=== PATIENT | male | born 1955 | race Caucasian/White ===

== ENCOUNTER 2018-09-17 07:32 | Outpatient (CLI) | payer OTHER ==
[~2018-09-17 07:32] MED LIST: ASPI-496
== END 2018-09-17 23:59 | disposition home or self-care (01) ==
LOC: CVU 07:32
PROVIDERS: ATTEND Surgery
DX: I87.2 Venous insufficiency (chronic) (peripheral) (principal); L81.9 Disorder of pigmentation, unspecified; R60.0 Localized edema
CPT/HCPCS: 93970

== ENCOUNTER 2018-10-06 19:25 | Observation (INO) | payer OTHER ==
[~2018-10-06] VITALS: Ht 182.9 cm; Wt 100.0 kg
[~2018-10-06 19:25] MED LIST changes: -ASPI-496; +ASPI-496 PO
--- NOTE | 2018-10-06 19:45 | NUR ---
CHEST PAIN X 10 MIN, C/O STERNAL PAIN, 4-5/10, NONRADIATING. PREVIOUS ME, SO CAME TO ER INSTRUCTED. PLACED ON SURGICAL DENTAL ASSISTANT, LABS DRAWN, CALL KAMAR IN MD EWELINA AT BS
[2018-10-06] MEDS ORDERED: ASPIRIN 81 MG TABLET CHEW ONE ×2 (19:52→20:10)
[2018-10-06] MEDS ORDERED: ASPIRIN 81 MG TABLET CHEW PO ONE (20:00)
[2018-10-06 20:16] LABS: BASOPHILS # (AUTO) 0.06 x10^3/uL (0-0.1); BASOPHILS % (AUTO) 1 % (0-1); EOSINOPHILS % (AUTO) 5 % (1-7); LYMPHOCYTES # (AUTO) 1.73 x10^3/uL (1-3.4); LYMPHOCYTES % (AUTO) 19 % (22-44); MD NO; MEAN CORPUSCULAR HEMOGLOBIN 29.6 pg (27.5-34.5); MEAN CORPUSCULAR HGB CONC 33.7 g/dL (33.2-36.2); MEAN PLATELET VOLUME 7.8 fL (7.4-10.4); MONOCYTES # (AUTO) 0.78 x10^3/uL (0.2-0.8); MONOCYTES % (AUTO) 8 % (2-9); NEUTROPHILS # (AUTO) 6.27 x10^3/uL (1.8-6.8); NEUTROPHILS % (AUTO) 67 % (42-75); PLATELET COUNT 299 x10^3/uL (130-400); RED BLOOD COUNT 4.57 x10^6/uL (4.38-5.82); RED CELL DISTRIBUTION WIDTH 14.8 % (9.4-14.8)
[2018-10-06 20:30] LABS: ALANINE AMINOTRANSFERASE 35 U/L (12-78); ALBUMIN 3.9 g/dL (3.4-5.0); ANION GAP 8 mmol/L (5-15); CHLORIDE 109 mmol/L (98-107); CREATININE 1.11 mg/dL (0.7-1.3)
[2018-10-06 20:34] LABS: ALKALINE PHOSPHATASE 148 U/L (45-117); TROPONIN I < 0.015 ng/mL (0.000-0.045)
[2018-10-06] MEDS ORDERED: NITROGLYCERIN SINGLE TAB 0.4 MG SL ONE (20:37)
[2018-10-06] MEDS ORDERED: NITROGLYCERIN SINGLE TAB 0.4 MG SL PRN (21:00)
--- NOTE | 2018-10-06 21:00 | NUR ---
PT RESTING QIETLY, DENIES CURRENT CP, TALKING WITH , NO DISTRESS NOTED
--- NOTE | 2018-10-06 22:30 | NUR ---
NO CHANGES, TALKING WITH , CALL LIGHT IN REACH
--- NOTE | 2018-10-06 23:33 | NUR ---
REPORT GIVEN TO BETZY LOVE
[2018-10-06 23:35] VITALS: BP 125/76
--- NOTE | 2018-10-06 23:35 | NUR ---
VITALS DONE AT 2315, NOT 2130
[2018-10-06] MEDS ORDERED: PRAS10TA4 PO (23:52)
[2018-10-06] MEDS ORDERED: METO-93 PO (23:52)
[2018-10-06] MEDS ORDERED: FISH12002 PO (23:52)
[2018-10-06] MEDS ORDERED: ATOR-2 PO (23:52)
[2018-10-07] MEDS ORDERED: ONDANSETRON 2MG/ML, 2ML IVPush PRN
[2018-10-07] MEDS ORDERED: hydrALAzine 20 MG/ML, 1ML IVPush PRN
[2018-10-07] MEDS ORDERED: BISACODYL 10 MG SUPP PR PRN
[2018-10-07] MEDS ORDERED: POLYETHYLENE GLYCOL 17 GM PACKET PO PRN
[2018-10-07] MEDS ORDERED: LABETALOL 20 MG/4 ML IVPush PRN
[2018-10-07] MEDS ORDERED: OXYcodone IR 5MG TABLET PO PRN
[2018-10-07] MEDS ORDERED: PROMETHAZINE 25 MG/ML, 1ML IM PRN
[2018-10-07] MEDS ORDERED: ONDANSETRON ODT 4 MG PO PRN
[2018-10-07] MEDS ORDERED: NITROGLYCERIN 0.4 MG BOTTLE (25 TABS) SL PRN
[2018-10-07] MEDS ORDERED: morphine SULFATE 10 MG/ML, 1ML IVPush PRN
[2018-10-07 00:35] LABS: FREE T4 (FREE THYROXINE) 1.21 ng/dL (0.76-1.46); THYROID STIMULATING HORMONE 3.65 mIU/L (0.358-3.740)
[2018-10-07 00:40] LABS: HEMOGLOBIN A1C 5.3 % (4.2-6.3)
[2018-10-07] MEDS: SODIUM CHLORIDE 0.9% 1,000 ML IV SCH ×2 (01:24→07:56)
[2018-10-07] MEDS: PANTOPRAZOLE 40 MG IV IVPush SCH (01:24)
[2018-10-07] MEDS: ATORVASTATIN 80 MG TABLET PO SCH ×2 (01:24→20:32)
[2018-10-07] MEDS: HEPARIN 5,000 UNITS/ML, 1ML SQ SCH ×3 (01:24→16:00)
[2018-10-07 03:13] LABS: BASOPHILS # (AUTO) 0.04 x10^3/uL (0-0.1); BASOPHILS % (AUTO) 1 % (0-1); EOSINOPHILS # (AUTO) 0.43 x10^3/uL (0-0.4); EOSINOPHILS % (AUTO) 6 % (1-7); LYMPHOCYTES # (AUTO) 1.89 x10^3/uL (1-3.4); LYMPHOCYTES % (AUTO) 24 % (22-44); MD NO; MEAN CORPUSCULAR HEMOGLOBIN 29.2 pg (27.5-34.5); MEAN CORPUSCULAR HGB CONC 33.3 g/dL (33.2-36.2); MEAN CORPUSCULAR VOLUME 87.7 fL (81-97); MEAN PLATELET VOLUME 7.6 fL (7.4-10.4); MONOCYTES # (AUTO) 0.69 x10^3/uL (0.2-0.8); MONOCYTES % (AUTO) 9 % (2-9); NEUTROPHILS # (AUTO) 4.81 x10^3/uL (1.8-6.8); NEUTROPHILS % (AUTO) 61 % (42-75); PLATELET COUNT 249 x10^3/uL (130-400); RED BLOOD COUNT 4.21 x10^6/uL (4.38-5.82); RED CELL DISTRIBUTION WIDTH 14.8 % (9.4-14.8)
[2018-10-07 03:24] LABS: ALANINE AMINOTRANSFERASE 31 U/L (12-78); ALBUMIN 3.6 g/dL (3.4-5.0); ANION GAP 5 mmol/L (5-15); CALCIUM 8.4 mg/dL (8.5-10.1); CHLORIDE 111 mmol/L (98-107); TRIGLYCERIDES 51 mg/dL (50-200); VLDL CHOLESTEROL 10 mg/dL (0-25)
[2018-10-07 03:29] LABS: ALKALINE PHOSPHATASE 121 U/L (45-117); CHOL/HDL RATIO 1.9; CHOLESTEROL, TOTAL 68 mg/dL (140-239); CREATININE 0.98 mg/dL (0.7-1.3); HDL CHOL % 53 % (26-37); HDL CHOLESTEROL (DIRECT) 36 mg/dL (40-60); LDL CHOLESTEROL,CALCULATED 22 mg/dL (54-169); LDL/HDL RATIO 0.6 (0.5-3.0); TOTAL PROTEIN 6.9 g/dL (6.4-8.2); TROPONIN I < 0.015 ng/mL (0.000-0.045)
[2018-10-07 03:43] VITALS: BP 128/71
[2018-10-07] MEDS: ASPIRIN 325 MG TABLET EC PO SCH (06:21)
[2018-10-07 08:07] VITALS: BP 128/77
[2018-10-07] MEDS ORDERED: TRIAMCINOLONE TP (08:34)
[2018-10-07] MEDS ORDERED: MULT-717 PO (08:34)
[2018-10-07] MEDS: SENNA/DOCUSATE TABLET PO SCH (09:00)
[2018-10-07 09:14] LABS: MICROSCOPIC INDICATED
[2018-10-07 09:15] LABS: CULTURE INDICATED? YES
[2018-10-07] MEDS: ASPIRIN 81 MG TABLET EC PO SCH (09:40)
[2018-10-07] MEDS: PRASUGREL 10 MG TABLET PO SCH (09:40)
[2018-10-07] MEDS: OMEGA-3/FISH OIL CAPSULE PO SCH (09:40)
[2018-10-07] MEDS: METOPROLOL SUCCINATE 50 MG TAB.ER.24H PO SCH (09:40)
[2018-10-07 10:34] LABS: TROPONIN I < 0.015 ng/mL (0.000-0.045)
[2018-10-07] MEDS ORDERED: REGADENOSON 0.4 MG/5 ML SYRINGE ONE ×2 (10:42→13:12)
[2018-10-07 12:25] LABS: TROPONIN I < 0.015 ng/mL (0.000-0.045)
[2018-10-07] MEDS ORDERED: CEFTRIAXONE PMX 1GM/50ML 50 ML IV SCH (13:00)
[2018-10-07 15:06] VITALS: BP 118/81
[2018-10-07 19:40] VITALS: BP 144/85
[2018-10-08] MEDS: PANTOPRAZOLE 40 MG IV IVPush SCH (01:42)
[2018-10-08 03:45] VITALS: BP 118/73
[2018-10-08] MEDS: ASPIRIN 325 MG TABLET EC PO SCH (05:35)
[2018-10-08 07:13] VITALS: BP 129/77
[2018-10-08] MEDS: HEPARIN 5,000 UNITS/ML, 1ML SQ SCH ×2 (08:00)
[2018-10-08] MEDS: SENNA/DOCUSATE TABLET PO SCH (09:00)
[2018-10-08] MEDS: OMEGA-3/FISH OIL CAPSULE PO SCH (09:19)
[2018-10-08] MEDS: ASPIRIN 81 MG TABLET EC PO SCH (09:19)
[2018-10-08] MEDS: PRASUGREL 10 MG TABLET PO SCH (09:19)
[2018-10-08] MEDS: METOPROLOL SUCCINATE 50 MG TAB.ER.24H PO SCH (09:19)
[2018-10-08] MEDS ORDERED: AMOX1TAB61 PO (12:08)
[2018-10-08] MEDS ORDERED: PANT40TA5 PO (12:09)
[2018-10-08] MEDS ORDERED: AMOXICILLIN/CLAV 500-125MG TABLET PO SCH (12:30)
[2018-10-08] MEDS ORDERED: CEFTRIAXONE PMX 1GM/50ML 50 ML IV SCH (12:30)
== END 2018-10-08 13:40 | disposition home or self-care (01) ==
LOC: ED 21:46 → EDIP 21:47 → INTOOBSV 21:47 → 5SO 23:36 → DCLOUNGE 10-08 13:24
PROVIDERS: ADMIT Internal Medicine; ATTEND Internal Medicine
DX: R07.89 Other chest pain (principal); I25.10 Atherosclerotic heart disease of native coronary artery without angina pectoris; I10 Essential (primary) hypertension; N39.0 Urinary tract infection, site not specified; I25.2 Old myocardial infarction; Z95.5 Presence of coronary angioplasty implant and graft; Z82.49 Family history of ischemic heart disease and other diseases of the circulatory system; Z88.8 Allergy status to other drugs, medicaments and biological substances; Z86.74 Personal history of sudden cardiac arrest
CPT/HCPCS: 36415; 71046; 76700; 78452; 80053; 80061; 81001; 83036; 83690; 83735; 83880; 84439; 84443; 84484; 85025; 87077; 87086; 87186; 93005; 93017; 96365; 96366; 96372; 96375; 96376; 99285; A9502; C9113; C9898; G0378; J0696; J1644; J2785; J7030

== ENCOUNTER → 2019-09-25 | Outpatient (CLI) | payer OTHER ==
[~2019-09-25] MED LIST changes: +AMOX1TAB61 PO; +ATOR-2 PO; +FISH12002 PO; +METO-93 PO; +MULT-717 PO; +PANT40TA5 PO; +PRAS10TA4 PO; +REGADENOSON 0.4 MG/5 ML SYRINGE ONE; +TRIAMCINOLONE TP
== END | disposition home or self-care (01) ==
LOC: CFH 11:38
PROVIDERS: ATTEND Internal Medicine Cardiovascular Disease
DX: I21.09 ST elevation (STEMI) myocardial infarction involving other coronary artery of anterior wall (principal); R06.02 Shortness of breath; R53.83 Other fatigue; R42 Dizziness and giddiness
CPT/HCPCS: 78452; 93017; A9502; J2785

== ENCOUNTER → 2020-05-10 | Outpatient (CLI) | payer OTHER ==
[~2020-05-10] MED LIST changes: -PANT40TA5 PO; +PANT40TA6 PO; -REGADENOSON 0.4 MG/5 ML SYRINGE ONE
== END | disposition home or self-care (01) ==
LOC: CVU 13:14
PROVIDERS: ATTEND Physician Assistant Medical
DX: I08.0 Rheumatic disorders of both mitral and aortic valves (principal); I10 Essential (primary) hypertension; M79.89 Other specified soft tissue disorders; Z98.61 Coronary angioplasty status
CPT/HCPCS: 93306; 93971